=== PATIENT | male | born 1970 ===

== ENCOUNTER 2025-03-08 12:58 | Emergency (ER) | payer BC ==
[2025-03-08 13:59] LABS: APPEARANCE,URINE CLEAR; GLUCOSE,URINE >=1000 mg/dL (NEGATIVE); OCCULT BLOOD,URINE NEGATIVE (NEGATIVE)
== END 2025-03-08 15:54 | disposition home or self-care (01) ==
LOC: MW.ED 12:58
DX: N45.1 Epididymitis (principal); Z79.899 Other long term (current) drug therapy; Z79.84 Long term (current) use of oral hypoglycemic drugs
CPT/HCPCS: 76870; 81003; 93976; 99284; A9270; 99283